=== PATIENT | male | born 1995 | race Caucasian/White ===

== ENCOUNTER 2021-03-25 10:58 | Emergency (ER) | payer MEDICAID ==
[~2021-03-25] VITALS: Ht 180.3 cm; Wt 88.5 kg
[2021-03-25 10:58] VITALS: BP_SYST 148
[2021-03-25 14:22] VITALS: BP_SYST 148
== END 2021-03-25 14:24 | disposition home or self-care (01) ==
LOC: SED 10:58
DX: S06.0X0A Concussion without loss of consciousness, initial encounter (principal); S62.346A Nondisplaced fracture of base of fifth metacarpal bone, right hand, initial encounter for closed fracture; S05.12XA Contusion of eyeball and orbital tissues, left eye, initial encounter; Y04.0XXA Assault by unarmed brawl or fight, initial encounter; Y93.89 Activity, other specified; Y92.89 Other specified places as the place of occurrence of the external cause; Y99.8 Other external cause status
CPT/HCPCS: 70450-TC; 70486-TC; 76376; 99285